=== PATIENT | female | born 1995 ===

== ENCOUNTER 2018-03-17 01:17 | Inpatient (IN) | payer OTHER ==
[2018-03-17 01:57] VITALS: BMI 34.0
[2018-03-17] MEDS: Lactated Ringer's 1,000 ML IV ONE ×3 (02:38→05:00)
[2018-03-17 03:10] LABS: BASO # 0.1 K/uL (0.0-0.2); BASO % 0.7 % (0.0-2.0); EOS # 0.3 K/uL (0.0-0.7); EOS % 3.5 % (0.0-4.0); HEMOGLOBIN 11.1 g/dL (12.0-16.0); LYMPH # 1.5 K/uL (1.0-4.3); LYMPH % 17.2 % (20.0-40.0); MEAN CELL VOLUME 84.5 fl (81.0-99.0); MEAN CORPUSCULAR HEMOGLOBIN 27.3 pg (27.0-31.0); MEAN CORPUSCULAR HGB CONC 32.3 g/dL (33.0-37.0); MEAN PLATELET VOLUME 10.2 fl (7.2-11.7); MONO # 0.5 K/uL (0.0-0.8); NEUT # 6.5 K/uL (1.8-7.0); NEUT % 72.6 % (50.0-75.0); NRBC % 0.1 % (0.0-0.0); RBC 4.07 Mil/uL (3.80-5.20); RED CELL DISTRIBUTION WIDTH 14.8 % (11.5-14.5)
[2018-03-17] MEDS ORDERED: Fentanyl/Bupivacaine HCl 250 ML EPI ONE (04:51)
[2018-03-17] MEDS: Lactated Ringer's 1,000 ML IV SCH ×3 (05:08→18:17)
[2018-03-17] MEDS ORDERED: ePHEDrine 50 mg/ml Inj ONE (07:23)
[2018-03-17] MEDS ORDERED: Oxytocin 30 UNITS in Sodium Chloride 0.9% 500 ML IV ONE (09:45)
[2018-03-17] MEDS ORDERED: Oxytocin 30 UNIT 30 UNITS/500 ML BAG IV ONE ×3 (16:45→21:57)
--- NOTE | 2018-03-17 16:45 | OBPN ---
Datetime: 03/17/2018 16:41 IP Progress Impression: Normal progression of labor IP Informed Consent Obtain: Vaginal Delivery IP Procedures: Sterile Vag Exam IP Progress Plan: Continue present management Contraction Comments Provider: q 2-3 mins FHR - Baseline A Provider: 150 IP Progress Note Comment: Patient feeling some more pressure VE=anterior lip/100/0 FHR = 150 mod jimmie, +accels, no decels TOCO = ctxning q 2-3 mins, Pit @ 18 A/p 1. patient progressing in labor, now anterior lip with Pitocin @ 18mu/min 2. Continue pitocin for augmentation 3. CEFM and TOCO - re-evaluate as needed Vital Signs Provider: Reviewed; Within Normal Limits NICHD Accel Fetus A IP Provider: 15X15 NICHD Variability Prov Fetus A: Moderate 6-25bpm Dilatation, Provider: ant lip Effacement, Provider: 100 Station, Provider: 0 NICHD Decel Fetus A IP Provider: None Datetime: 03/17/2018 14:00 Membranes, Provider: Ruptured Gestation - Est Wks by US: 39.3 Presentation-Admit: Vertex FHR Category Provider Fetus A: Category II
--- NOTE | 2018-03-17 19:11 | OBPN ---
Datetime: 03/17/2018 09:09 Membranes, Provider: Ruptured Contraction Comments Provider: q 5 mins FHR - Baseline A Provider: 140 IP Progress Note Comment: Patient for evaluation, comfortable s/p epidural VE = 4/60/-1 [id number] mod jimmie, +accels, no decels TOCO = ctxning q 5 mins A/P 1. patient progressing slowly in labor - will start Pitocin for augmentation 2. CEFM and TOCO 3. Re-evaluate as needed Vital Signs Provider: Reviewed; Within Normal Limits NICHD Accel Fetus A IP Provider: 15X15 NICHD Variability Prov Fetus A: Moderate 6-25bpm Dilatation, Provider: 4 Effacement, Provider: 60 Station, Provider: -1 NICHD Decel Fetus A IP Provider: None
[2018-03-17] MEDS ORDERED: Benzocaine/Menthol SPRAY TOP PRN (22:02)
--- NOTE | 2018-03-17 22:15 | OBDS ---
MATERNAL INFORMATION Delivery Anesthesia: Epidural Provider Comments: 22 year old admitted 03/17 for spontaneous labor. GBS negative, pitocin used for augmentation. Progressed to normal spontaneous vaginal delivery live male infact, position MOLLY ov er intact perineum with epidural anesthesia. Immediate cord clamping was performed and the infant was placed on the warmer, Apgars were 8 _ 9 and no excessive resuscitation was required. No meconium pre sent, nuchal cord x1. Spontaneous delivery of placenta with 3-vessel cord. No lacerations present. QB L 150cc. Mom and baby are in stabe condition and will be recovered in L_D. Jane Real MD OB Fellow LABOR SUMMARY EDC: 03/21/2018 00:00 No. Babies in Womb: 1 Attempted: No Labor Anesthesia: Epidural LABOR INFORMATION Group B Beta Strep: Done, Result Unknown Antibiotics # of Doses: 0 Antibiotics Time of Last Dose: n/a MEMBRANES Membranes Rupture Method: Spontaneous Rupture of Membranes: 03/16/2018 22:30 Amniotic Fluid Color: Clear Amniotic Fluid Amount: Moderate Amniotic Fluid Odor: Normal VAGINAL DELIVERY Episiotomy: None Laceration Extension: N/A Laceration Type: None Sponge Count Correct: Yes Sharps Count Correct: N/A IDENTIFICATION/MEDS BABY A ID Band Number: [id number]
[2018-03-18] MEDS ORDERED: Benzocaine/Menthol SPRAY TOP PRN (01:03)
--- NOTE | 2018-03-18 10:06 | OBPPN ---
Datetime: 03/18/2018 05:38 PP Pain Prov: Within normal limits PP Nausea Prov: Denies PP Flatus Prov: Yes PP BM Prov: No PP Comments Phys Exam Prov: see progress note PP Impression Prov: Normal progression PP Plan Prov: Continue present management PP Progress Note Prov: 22 y/o s/p last night seen and examined this AM at bedside. Patient had an uneventful overnight, c/o mild pelvic pain controlled with medication. Pt is getting OOB w/o dizziness and is tolerating regular diet w/o N/V. Patient reports lochia is like menses in volume, +f latus, voiding well. w/o difficulties. Denies [place], chest pain, blurred vision, SOB, feve r, or calf pain. O: VS WNL GEN: Sitting comfortably in bed, NAD HEENT: NCAT LUNGS: CTA, no wheezing CVS: RRR, S1, S2 present normal, no murmurs. ABD: No distended, BS +, uterus firm at umbilical level EXT: No edema, Hattie's negative A/P 22 y/o s/p on 03/17/18 with normal progression, patient is today on her PPD1. -Regular diet -Encourage ambulation -Encourage -PNV 1 tab PO daily -Ibuprofen 600mg 1 tab Q6h prn for mild-mod pain -D/C planning 03/19/18. Rafael Chacon MD PGY1 OB Hospitalist on-call. Pt seen on rounds Agree with PGY1 note. DHARMESH Vital Signs Provider PP: Reviewed; Within Normal Limits
[2018-03-18] MEDS ORDERED: Oxytocin 30 UNIT 30 UNITS/500 ML BAG IV ONE (21:57)
[2018-03-19] MEDS ORDERED: Prenatal Multivit/Folic Acid/Iron Tab PO SCH (09:00)
--- NOTE | 2018-03-19 10:12 | OBPPN ---
Datetime: 03/19/2018 08:37 PP Pain Prov: Within normal limits PP Nausea Prov: Denies PP Flatus Prov: Yes PP BM Prov: Yes PP Breasts Prov: Not Done PP Heart Prov: Normal PP Lungs Prov: Normal PP Abdomen/Uterus Prov: Normal PP Lochia Prov: Normal PP Vulva/Perineum Prov: Not Done PP CVA Tenderness Prov: Not Done PP Extremities Prov: Normal PP C/S Incision Prov: Not Applicable PP Progress Prov: Normal PP Impression Prov: Normal progression PP Plan Prov: Continue present management; Discharge PP Progress Note Prov: 22 y/o s/p on 03/17/18/ @ 21L51 seen and examined this AM at beds [facility]. Patient had an uneventful overnight, c/o mild pelvic pain controlled with medication. Pt is gett ing OOB w/o dizziness and is tolerating regular diet w/o N/V. Patient reports lochia is like menses i n volume, +flatus,+ BM, voiding well. Breast and bottle feeding w/o difficulties. Denies [place], chest pa in, blurred vision, SOB, fever, or calf pain. O: VS WNL GEN: Sitting comfortably in bed, NAD HEENT: NCAT LUNGS: CTA, no wheezing CVS: RRR, S1, S2 present normal, no murmurs. ABD: soft, nontender nondistended BS +, uterus firm at umbilical level EXT: B/L 1+ edema R>L A/P 22 y/o s/p on 03/17/18 @ 21:52 with normal progression, patient doing well on PPD2. -Regular diet -Encouraged ambulation -Encourage -PNV 1 tab PO daily -Ibuprofen 600mg 1 tab Q6h prn for mild-mod pain -D/C today home -F/u with Shubham mcgraw for 4-6 week post visit and 1 week new born appt pt will call to joanna Mckeon M.D. PGY-1 Case reviewed and discussed with attending Addendum by Dr. Flores: I have seen and evaluated the patient independently and I agree with the ab ove IP PP Procedures: None Vital Signs Provider PP: Reviewed; Within Normal Limits
--- NOTE | 2018-03-19 10:12 | OBDCSUM ---
Datetime: 03/19/2018 08:08 Discharged to, Provider: Home Follow up at, Provider: Shubham Soto Instr Activity: Normal activity Disch Instr Diet: Regular Discharge Instructions, Provider: Routine instructions given Discharge Diagnosis, Provider: Term Delivered Discharge Time: 03/19/2018 08:08 Follow up in weeks, Provider: 4-6 wk PP visit, 1wk Disch Referrals: None Contraception discussed, Prov: Yes Disch Activity Restrictions: No exercising; Minimize stair-climbing; No sexual activity; Nothing in vagina - [place], tampons, douche Discharge Comment, Provider: Ob Discharge Summary DOA: 03/17/18 EGA: 39.3 wks Diagnosis: SROM Pregnacy risk factors:None Summary of : s/p on 03/17/18 @ 21:52 with normal progression NB: Male- circumcision today : 8/9 Weight: 1583g The patient is a 22 y/o s/p on 03/17/18 @ 21:52 with normal progression, latanya templeton doing well on PPD2. -Regular diet -Encouraged ambulation -Encourage -PNV 1 tab PO daily -Ibuprofen 600mg 1 tab po Q4-6 hours #30 -D/C home today -F/u with Shubham Major 4-6 weeks Post and 1 week visit DISCHARGE DATA D/C DATE: 03/19/18 TIME: 8:00 Contraception after Delivery: Undecided
[2018-03-19 19:37] VITALS: BP 121/73; PULSE 80; RESP 20; TEMP 97.9; O2SAT 99
== END 2018-03-19 14:55 | disposition home or self-care (01) | DRG 373 ==
LOC: H.EROB2 01:17 → H.L&D 02:02 → H.OB/GYN 03-18 00:51
PROVIDERS: ADMIT Obstetrics & Gynecology; ATTEND Obstetrics & Gynecology
PROC: 10E0XZZ Delivery of Products of Conception, External Approach (ICD-10-PCS; principal; 2018-03-17)
PROC: 4A1HXCZ Monitoring of Products of Conception, Cardiac Rate, External Approach (ICD-10-PCS; 2018-03-17)
DX: O69.81X0 Labor and delivery complicated by cord around neck, without compression, not applicable or unspecified (principal); Z3A.39 39 weeks gestation of pregnancy; Z37.0 Single live birth